=== PATIENT | female | born 1975 | race Caucasian/White ===

== ENCOUNTER 2017-04-11 21:58 | Emergency (ER) | payer SELFPAY ==
[~2017-04-11] VITALS: Ht 160 cm; Wt 44.0 kg
[2017-04-11 22:02] VITALS: Ht 160 cm; Wt 44.0 kg
== END 2017-04-11 23:50 | disposition left against medical advice (07) ==
LOC: FTE 21:58 → E/R 23:50
DX: Z53.21 Procedure and treatment not carried out due to patient leaving prior to being seen by health care provider (principal)

== ENCOUNTER 2018-11-23 20:27 | Emergency (ER) | payer OTHER ==
[~2018-11-23] VITALS: Ht 162.6 cm; Wt 56.0 kg
[~2018-11-23 20:27] MED LIST: CLON2TAB12 PO
[2018-11-23 20:42] VITALS: Ht 162.6 cm; Wt 56.0 kg
[2018-11-23] MEDS ORDERED: IBUPROFEN 800 MG TAB PO ONE (21:30)
[2018-11-23] MEDS ORDERED: IBUP-1542 PO (21:54)
--- NOTE | 2018-11-23 22:37 | ERD ---
ER Documentation Chief Complaint Chief Complaint flank pain since 11/19; diarrhea x 1 today; back pain HPI Patient is a 43-year-old female with drug use who presents saying "I cannot stand". She says that she has lower back pain and feels like her back is swollen. She denies trauma. She said that she recently used heroin and methamphetamines 2 days ago. Upon review of old medical records the patient has multiple visits for various complaints. Review of the emergency department information exchange system shows visits to 2 separate emergency departments for a total of 5 visits over the past 1 year. Her primary doctor is Dr. Masha Chicas. She says she was just recently discharged from nursing home. ROS All systems reviewed and are negative except as per history of present illness. Medications Home Meds Active Scripts Ibuprofen* (Motrin*) 600 Mg Tab, 600 MG PO Q6H PRN for PAIN AND OR ELEVATED T EMP, #30 TAB Prov:ASH SLOAN MD 11/23/18 Reported Medications Clonazepam* (Clonazepam*) 2 Mg Tablet, 2 MG PO DAILY PRN for ANXIETY, TAB 09/04/18 Allergies Allergies: Coded Allergies: No Known Drug Allergy (Verified Allergy, Unknown, 09/04/18) PMhx/Soc History of Surgery: Yes (SACRAL AREA SURGERY , NOSE JOB , ABORTIONS ) Anesthesia Reaction: No Hx Neurological Disorder: No Hx Respiratory Disorders: Yes (ASTHMA ) Hx Cardiac Disorders: No Hx Psychiatric Problems: Yes (BIPOLAR , ADHD ) Hx Miscellaneous Medical Probl: Yes (ETOH , HEROIN USE , SMOKER ) Hx Alcohol Use: Yes Hx Substance Use: Yes Hx Tobacco Use: Yes Smoking Status: Current some day smoker FmHx Family History: No diabetes Physical Exam Vitals Vital Signs Date Temp Pulse Resp B/P (MAP) Pulse Ox O2 O2 Flow FiO2 Time Delivery Rate 11/23/18 98.7 99 20 163/74 95 20:42 (103) Physical Exam Const: Mild distress Head: Atraumatic Eyes: Normal Conjunctiva ENT: Normal External Ears, Nose and Mouth. Neck: Full range of motion. No meningismus. Resp: Clear to auscultation bilaterally Cardio: Regular rate and rhythm, no murmurs Abd: Soft, non tender, non distended. Normal bowel sounds Skin: No petechiae or rashes Back: No midline or flank tenderness, no obvious swelling or infection seen Ext: No cyanosis, or edema Neur: Awake but slightly confused, appears under the influence Results 24 hrs Laboratory Tests Test 11/23/18 21:31 11/23/18 21:37 Bedside Urine pH (LAB) 6.0 Bedside Urine Protein (LAB) 2+ Bedside Urine Glucose (UA) Negative Bedside Urine Ketones (LAB) 3+ Bedside Urine Blood 1+ Bedside Urine Nitrite (LAB) Negative Bedside Urine Leukocyte Esterase (L Negative POC Beta HCG, Qualitative NEGATIVE Current Medications Medications Dose Sig/Heriberto Start Time Status Last (Trade) Ordered Route PRN Stop Time Admin Dose Reason Admin Ibuprofen 800 mg ONCE ONCE 11/23/18 DC 11/23/18 (Motrin) PO 21:30 21:34 11/23/18 21:31 Procedures/MDM Urine dip is negative for infection. Urine test is negative. Smoking Cessation Therapy: Pt. was lectured for greater than 3 minutes on the health risks of continued smoking and the benefits of cessation. Patient is a 43-year-old female who presents with complaints of back pain. Urine dip and urine test are negative. I doubt pyelonephritis. I doubt or ectopic . I told her that she is need to stop using methamphetamines and heroin. She can follow-up with her primary doctor within 24 to 48 hours. She can return for any worsening symptoms. She will be given ibuprofen for pain. Departure Diagnosis: Primary Impression: Methamphetamine abuse Additional Impressions: Anxiety Flank pain Condition: Fair Patient Instructions: Understanding Methamphetamine Abuse and Addiction, Flank Pain, Uncertain Cause Additional Instructions: Call your primary care doctor TOMORROW for an appointment during the next 1-2 days.See the doctor sooner or return here if your condition worsens before your appointment time. ASH SLOAN MD Nov 23, 2018 22:37
== END 2018-11-23 22:45 | disposition home or self-care (01) ==
LOC: E/R 20:27
DX: F15.10 Other stimulant abuse, uncomplicated (principal); F41.9 Anxiety disorder, unspecified; R10.9 Unspecified abdominal pain; J45.909 Unspecified asthma, uncomplicated; F17.210 Nicotine dependence, cigarettes, uncomplicated
CPT/HCPCS: 81003; 81025; Z7610; 99282

== ENCOUNTER 2019-02-14 05:42 | Inpatient (IN) | payer OTHER ==
[~2019-02-14] VITALS: Ht 160 cm; Wt 52.0 kg
[~2019-02-14 05:42] MED LIST changes: +IBUP-1542 PO
[2019-02-14 11:20] VITALS: BP 109/64; RESP 18
[2019-02-14] MEDS ORDERED: PIPER-TAZO 3.375 GM IV (PMX) 100 ML IVPB SCH (12:00)
--- NOTE | 2019-02-14 12:05 | HP ---
Date/Time of Note Date/Time of Note DATE: 02/14/19 TIME: 11:37 Assessment/Plan VTE Prophylaxis Pharmacological prophylaxis: LMWH Assessment/Plan Hospital Course Bilateral infected necrotic gluteal wounds. Patient reports that 12 years ago she shoot heroine in her gluteal area, then it got infected and it was running pus and she got abscess. those abscesses were recurrent during 12 years of her life, she got them naturally resolved. There were a few incision and drainage surgeries in hospital before, patient does not remember the year. Homelessness. History of drug abuse, injection last; heroine was given yesterday 6 PM intramuscularly. Patient used cocaine before, patient is on alprazolam 2 mg oral every day at bedtime and clonazepam oral twice a day if needed. those medications are both on street they are not prescribed. Uses methamphetamine. Patient was methadone clinic 1 year ago, then she lost her Medi-Chris and she is out of methadone. Bipolar disease. Normocytic hypochromic anemia Hepatitis C. Malnourishment History of seizure. Nicotine dependence, patient is smoking half pack of cigarettes a day Probable history of asthma Assessment/Plan -Start home medications -Pain control -Start vancomycin empirically start Zosyn -Dr. Salcido ID consult called -Regular diet -Dr. Laureano for pain/heroine abuse problem, cold Wound care per protocol prevention amputation clinic consult -DVT prophylaxis SCD bilaterally and Lovenox -GI prophylaxis Protonix PO/IV -fall precaution -Drug counseling for 5 minutes -Discussed diagnosis, treatment, risks benefits, side effects and alternate treatment. -Medication Xanax, their effects and side effects including metabolic, affect on heart were discussed. -Compliance with no smoking was addressed. -Care coordinated with Dr Velasquez HPI/THERESA Admit Date/Time Admit Date/Time Feb 14, 2019 at 10:57 Hx of Present Illness this 43 y.o female was transferred today from [facility] around 11:45 AM. According to paperwork she came together with her boyfriend to [facility] emergency room. She reported that she has got bilateral gluteal wounds that were closed for some time but now they reopened last week and started draining. Patient states that she injected heroin in her wounds. Patient reports that showed problems as psychiatric she has bipolar disease, hepatitis C, seizures, drug abuse, depression, and recurrent abscess in bottoms bilaterally. CBC is a showed WBC 7.0 RBC 3.28 hemoglobin 8.5 hematocrit 27.3 MCV 83.2 platelets 588. CMP showed glucose 116 BUN 8 creatinine 0.6 total bilirubin 0.2 alkaline phosphatase 102 ALT 10 AST 13 total protein 7.7 albumin 3.3 calcium 8.9 sodium 137 potassium 4.1 chloride 102 CO2 25 GFR 118. Alcohol level below 10. test urine negative. CT scan was done, results are not available. Patient was given 1 g of vancomycin and 3.375 g of Zosyn she was given 1 L of fluid in the emergency room. Hep-Lock was established. Home medications: Klonopin 2 mg orally twice a day Xanax 2 mg orally every day at bedtime. Surgical history; multiple I an D. Multiple surgeries due to bilateral gluteal wounds for 12 years. Social history: Homeless, has boyfriend. Single. Has relatives : Mom. uses methamphetamine, heroin IV, smoking cigarettes half pack a day. ROS Constitutional: No fever, cough or chills. EYE: No eye disease. No visual problems. CARDIOVASCULAR: No chest pain. No Tachycardia. No Palpitation. RESPIRATORY: No breathing problems. HAs COPD or disease of respiration, smoking 1/2 pack aday GASTROINTESTINAL: No Nausea. No Vomiting. No constipation. Endocrine: No excessive thirst, No polyuria, No hot intolerance. No cold intolerance. MUSCULO-SKELETAL: bilateral gluteal pain 8 out of 10 , left foot 4.5 toes wound with pain NEUROLOGICAL: Alert oriented in person, place, time and situation. No Headache, Confusion. No Seizures. No problem with balance. PMH/Family/Social Past Medical History Coded Allergies: No Known Drug Allergy (Verified Allergy, Unknown, 09/04/18) Exam/Review of Systems Exam Exam No acute distress Eyes: anicteric, EOM's intact, no pallor Nose: no rhinorrhea Neck: supple, no thyromegaly, no carotid bruits Lungs: clear bilaterally, decreased. CVS: regular rate and rhythm, no murmurs Abdomen: soft, bowel sounds present, no hepatosplenomegally, no masses, no rebound or guarding. Rectal: differed. External genitalia: no lesions. No Zarate Extremities: no edema, DP palpable, wound between fourth and fifth toes on the left foot. Patient with bilateral necrotic gluteal wounds nobles color, no drainage, size around 10 cm each in diameter Neuro: alert and oriented x 3 Gait: normal Motor strength: 4+/4+ Sensory exam is normal, except in hip areas were decreased or absent Deep tendon reflexes: normal, Babisky reflexes are absent bilaterally Skin: many skin lesions, healed lesions, many scars, pale JULIETH NICOLE Feb 14, 2019 11:52
[2019-02-14 12:17] VITALS: Ht 160 cm; Wt 52.0 kg
[2019-02-14 12:26] VITALS: PULSE 110
[2019-02-14] MEDS ORDERED: LORAZEPAM 1 MG TAB PO PRN (12:30)
[2019-02-14] MEDS ORDERED: ENOXAPARIN 40 MG/0.4 ML SYG SC SCH (12:30)
[2019-02-14] MEDS ORDERED: SOD CHLORIDE 0.9% 1,000 ML IV SCH (12:30)
[2019-02-14] MEDS ORDERED: morphine 2 MG INJ IV PRN (12:30)
[2019-02-14] MEDS ORDERED: VANCOMYCIN IV PER PHARMACY XX SCH (12:30)
--- NOTE | 2019-02-14 12:51 | PSY ---
Date/Time of Note Date/Time of Note DATE: 02/14/19 TIME: 12:38 Psychiatric Subjective Eval Consent Pt consented to telemedicine: No Subjective Evaluation Patient location: inpatient History of present illness Patient is a 43 y.o female was transferred today from [facility] accompanied by her boyfriend, admitted for bilateral gluteal wounds. On a [id number] evaluation, patient is irritable upsets, threatening to leave, patient states she has history of heroin addiction and bipolar disorder. She denies hearing voices, denies suicidal ideation, and contracted for safety. Discussed risk and benefits of Seroquel and she verbalized understanding. While the interviewer was starting the documentation, patient stormed out of the room running with her IV, she was told she may leave but she cannot live with her IV. Patient pulled out her heplock, on the floor and went running. Hospitalization: other Medical history Problems Medical Problems: (1) Anxiety Status: Acute (2) Back pain Status: Acute (3) Decubital ulcer Status: Acute (4) Encounter for medication refill Status: Acute (5) Flank pain Status: Acute (6) Homelessness Status: Acute (7) Methamphetamine abuse Status: Acute (8) Osteomyelitis Status: Acute (9) Patient left after triage Status: Acute (10) Patient left without being seen Status: Acute (11) Patient left without being seen Status: Acute Allergies: Coded Allergies: No Known Drug Allergy (Verified Allergy, Unknown, 09/04/18) Substance Abuse Substance abuse history: Yes Prior substance abuse treatmen: Yes Social History Marital status: other DPA/Conservatorship: No Psychiatric Objective Eval Review of Systems: Review of Systems: Not Applicable Physical Examination: Energy: Decreased Interest: Decreased Mental Status Examination: Eye Contact: Fair Behavior: Cooperative Speech: Soft AFFECT: Anxious Though Process: Linear Orientation: x4 Cognition: Alert Insight: Moderate Judgement: Moderate Attention Span: Distractible Assessment and Plan Recommendation/Plan Medication Management Seroquel 200 mg at bedtime was discussed, however patient left even before the order was entered. Multiple antipsychotics: No Discharge Disposition: Other Legal Status: Voluntary (She does not meet criteria for 5150 hold, patient left AGAINST MEDICAL ADVICE.) DWAYNE AGUDELO NP Feb 14, 2019 12:48
[2019-02-14] MEDS ORDERED: VANCOMYCIN 750 MG (PMX) 250 ML IVPB SCH (14:00)
--- NOTE | 2019-02-14 14:30 | DS ---
Date/Time of Note Date/Time of Note DATE: 02/14/19 TIME: 14:28 Discharge Summary Admission/Discharge Info Admit Date/Time Feb 14, 2019 at 10:57 Discharge Date/Time Feb 14, 2019 at 12:34 Discharge Diagnosis Bilateral gluteal necrotic infected wounds Patient Condition: Guarded Consults Psychiatry FOOD BEVERAGE MANAGER Lucy Hospital Course This 43 y.o female was transferred today from [facility] around 11:45 AM. According to paperwork she came together with her boyfriend to [facility] emergency room. She reported that she has got bilateral gluteal wounds that were closed for some time but now they reopened last week and started draining. Patient states that she injected heroin in her wounds. Patient reports that showed problems as psychiatric she has bipolar disease, hepatitis C, seizures, drug abuse, depression, and recurrent abscess in bottoms bilaterally. CBC is a showed WBC 7.0 RBC 3.28 hemoglobin 8.5 hematocrit 27.3 MCV 83.2 platelets 588. CMP showed glucose 116 BUN 8 creatinine 0.6 total bilirubin 0.2 alkaline phosphatase 102 ALT 10 AST 13 total protein 7.7 albumin 3.3 calcium 8.9 sodium 137 potassium 4.1 chloride 102 CO2 25 GFR 118. Alcohol level below 10. test urine negative. CT scan was done, results are not available. Patient was given 1 g of vancomycin and 3.375 g of Zosyn she was given 1 L of fluid in the emergency room. Hep-Lock was established. Home medications: Klonopin 2 mg orally twice a day Xanax 2 mg orally every day at bedtime. Surgical history; multiple I an D. Multiple surgeries due to bilateral gluteal wounds for 12 years. Social history: Homeless, has boyfriend. Single. Has relatives : Mom. Impressions: Bilateral infected necrotic gluteal wounds. Patient reports that 12 years ago she shoot heroine in her gluteal area and then it got infected and it was running past and she got abscess those abscesses were recurrent during 12 years of her life she got them naturally resolved. There were a few incision and drainage surgeries before patient does not remember the year. Homelessness. History of drug abuse, injection last heroine was given yesterday 6 PM intramuscularly. Patient used cocaine before, patient is on alprazolam 2 mg oral every day at bedtime and clonazepam oral twice a day if needed. those medications are both on street they are not prescribed. Patient was methadone clinic 1 year ago, then she lost her Medi-Chris and she is out of methadone. Bipolar disease. Normocytic hypochromic anemia malnourishment Hepatitis C. Malnourishment History of seizure. Nicotine dependence patient is smoking half pack of cigarettes a day Probable history of asthma During the admission process patient did not like that he will belongings were searched, she actually had some medication with her and she decided to leave. Patient was attended with the head nurse and nursing dog license officer supervisor and she decided to stay. After patient was promised to have Xanax and morphine she said this is not enough for her and she wants to have methadone now. She called her boyfriend and.per again nursing she say that she wants to leave . Nurse practitioner Lucy for psychiatry saw patient and evaluated her. She did not order any medications. Patient signed AMA and she left the premises. Home Meds Active Scripts Ibuprofen* (Motrin*) 600 Mg Tab, 600 MG PO Q6H PRN for PAIN AND OR ELEVATED TEMP, #30 TAB Prov:ASH SLOAN MD 11/23/18 Reported Medications Clonazepam* (Clonazepam*) 2 Mg Tablet, 2 MG PO DAILY PRN for ANXIETY, TAB 09/04/18 Follow-up Plan Unknown. Patient left AMA, Primary Care Provider Masha Barillas MD Time spent on discharge: < 30 minutes JULIETH NICOLE Feb 14, 2019 14:30
[2019-02-15] MEDS ORDERED: PANTOPRAZOLE (EC) 40 MG TAB PO SCH (06:00)
== END 2019-02-14 12:34 | disposition left against medical advice (07) | DRG 603 ==
LOC: 5EC 10:57
PROVIDERS: ADMIT Internal Medicine Nephrology; ATTEND Internal Medicine Nephrology
DX: L08.89 Other specified local infections of the skin and subcutaneous tissue (principal); F11.20 Opioid dependence, uncomplicated; F15.20 Other stimulant dependence, uncomplicated; E46 Unspecified protein-calorie malnutrition; F41.9 Anxiety disorder, unspecified; Z59.0 Homelessness; D64.9 Anemia, unspecified; B18.2 Chronic viral hepatitis C; Z68.20 Body mass index [BMI] 20.0-20.9, adult; F31.9 Bipolar disorder, unspecified; F17.210 Nicotine dependence, cigarettes, uncomplicated
CPT/HCPCS: J3370; J7030